=== PATIENT | female | born 1985 | race Two or more races ===

== ENCOUNTER 2019-03-05 14:34 | Emergency (ER) | payer OTHER ==
[~2019-03-05] VITALS: Ht 160 cm; Wt 68.9 kg
[2019-03-05] MEDS ORDERED: Ketorolac 30mg Inj IV ONE (14:45)
[2019-03-05] MEDS ORDERED: Benzonatate 100mg Perles ORAL ONE (14:45)
--- NOTE | 2019-03-05 14:46 | Emergency Room Report ---
History of Present Illness General Chief Complaint: Upper Respiratory Illness Source: Patient, EMS (Alex Coley) Present Illness HPI 33-year-old female patient presents the ER brought in by ambulance for cough and right-sided chest pain. Reports cough is been present for the past 3 days, states cough with mucus. Denies hemoptysis. Reports onset of right-sided chest pain is worse with cough since this morning. Denies injury or accident. Denies fever. Reports was seen at [facility] 3 days ago at onset of symptoms and told that she had strep throat but was discharged with an albuterol inhaler. Reports that she does not have sore throat throat symptoms at this time. Denies vomiting or diarrhea. Denies history of heart disease. Denies history of asthma. Reports shortness of breath with cough symptoms. Denies recent travel outside the country. Denies calf pain. Denies other aggravating or relieving factors. Denies dysuria. Denies drinking daily, drug use, marijuana use. Reports social drinking. Reports able to pass flatus. (Alex Coley) Allergies: Coded Allergies: No Known Allergies (Unverified , 03/05/19) Patient History Past Medical History: see triage record Last Menstrual Period: 01/30/19 Reviewed Nursing Documentation: PMH: Agreed; PSxH: Agreed (Alex Coley) Nursing Documentation-PMH Past Medical History: No Stated History (Alex Coley) Review of Systems All Other Systems: negative except mentioned in HPI (Alex Coley) Physical Exam Vital Signs Date Time Temp Pulse Resp B/P (MAP) Pulse Ox O2 Delivery O2 Flow Rate FiO2 03/05/19 14:32 98.1 96 18 118/80 100 Room Air Sp02 EP Interpretation: reviewed, normal General Appearance: well appearing, no apparent distress, alert, GCS 15, non- toxic Head: normocephalic, atraumatic Eyes: bilateral eye normal inspection, bilateral eye PERRL ENT: hearing grossly normal, normal pharynx, no angioedema, normal voice, TMs + canals normal, uvula midline, moist mucus membranes, other - no tonsillar exudates, no pharyngeal erythema Neck: full range of motion, no meningismus, no bony tend Respiratory: lungs clear, normal breath sounds, no rhonchi, no respiratory distress, no accessory muscle use, no wheezing, speaking full sentences, other - Right anterior wall chest tender to palpation, no flail chest, no bony deformity, no ecchymosis Cardiovascular #1: regular rate, rhythm, no edema Gastrointestinal: soft, no mass, non-distended, no guarding, no rebound, tenderness - Generalized and diffuse, other - Negative Jefferson Musculoskeletal: back normal, digits/nails normal, gait/station normal, normal range of motion, non-tender, no calf tenderness, Prabhu's Sign negative Neurologic: alert, oriented x3, responsive, motor strength/tone normal, sensory intact Psychiatric: mood/affect normal Skin: no rash (Alex Coley P.AAndria) Medical Decision Making PA Attestation Dr. Zaragoza is my supervising Physician whom patient management has been discussed with. (Alex Coley P.AAndria) Diagnostic Impression: Primary Impression: Urinary tract infection Qualified Codes: N39.0 - Urinary tract infection, site not specified Additional Impressions: Musculoskeletal chest pain Upper respiratory infection Qualified Codes: J06.9 - Acute upper respiratory infection, unspecified Bronchospasm ER Course Pt. presents to the ED c/o right-sided chest pain, cough. Ddx considered but are not limited to viral URI, influenza, costochondritis, WA , PE, UTI, pneumonia, bronchitis,sepsis, strep throat. On PE, chest is TTP; chest pain likely musculoskeletal in nature secondary to cough, does not require cardiac workup at this time. Patient instructed to take NSAIDs as needed for pain symptoms. Vital signs: are WNL, pt. is afebrile ER COURSE: Provide medication and IV fluids in the ER. On initial physical exam patient has generalized abdominal tenderness to palpation, abdomen is soft, no focal abdominal pain, patient states that the abdominal pain began in the ER, initially had no complaints of abdominal pain. Negative Rovsing, negative obturator, low suspicion for appendicitis however will continue to monitor. Does not require CT abdomen at this time. EKG unremarkable, no ST elevations or T wave inversions, low suspicion for WA or cardiac etiology of symptoms. Chest x-ray unremarkable, no signs of pneumonia Pain reproducible, chest TTP, CXR and EKG negative, low suspicion for cardiac etiology of symptoms, likely MSK in nature. Advised patient to followup with PCP and discuss referral to cardiology for stress testing and further evaluation. Influenza swab negative Urine negative UDS negative UA shows elevated WBCs and bacteria, likely urinary tract infection, will provide patient with Rocephin in the ER and antibiotics at discharge. CBC mildly elevated WBCs, likely due to pain and urinary tract infection CMP unremarkable, mild elevation in AST Lipase WNL Reports continued complaints of pain, provide with further pain medication in the ER. Patient resting comfortably in no acute distress, nontoxic appearing. ER precautions given. Patient reports pain symptoms improve ER. Follow-up with primary care provider. Patient seen and evaluated by Dr. Zaragoza in the ER. DISCHARGE: At this time pt is stable for d/c to home. Patient is resting comfortably, in no acute distress, nontoxic appearing, talking without difficulty. Patient to take medications as instructed Will provide with patient care instructions and any necessary prescriptions. Care plan and follow-up instructions provided. Patient instructed to follow-up with primary care provider in 3 - 5 days. Patient questions asked and answered. Patient reports understanding and agreement to treatment plan. ER precautions given. Patient instructed to return to ER immediately for any new or worsening of symptoms including but not limited to increasing SOB, persistent fever, chest pain, intractable vomiting. - Please note that this Emergency Department Report was dictated using [employer] welding machine operator technology software, occasionally this can lead to erroneous entry secondary to interpretation by the dictation equipment. Labs Test 03/05/19 14:56 03/05/19 15:00 White Blood Count 14.2 K/UL (4.8-10.8) Red Blood Count 3.83 M/UL (4.20-5.40) Hemoglobin 12.2 G/DL (12.0-16.0) Hematocrit 35.5 % (37.0-47.0) Mean Corpuscular Volume 93 FL (80-99) Mean Corpuscular Hemoglobin 32.0 PG (27.0-31.0) Mean Corpuscular Hemoglobin Concent 34.5 G/DL (32.0-36.0) Red Cell Distribution Width 12.2 % (11.6-14.8) Platelet Count 316 K/UL (150-450) Mean Platelet Volume 5.2 FL (6.5-10.1) Neutrophils (%) (Auto) 82.7 % (45.0-75.0) Lymphocytes (%) (Auto) 9.4 % (20.0-45.0) Monocytes (%) (Auto) 5.6 % (1.0-10.0) Eosinophils (%) (Auto) 1.5 % (0.0-3.0) Basophils (%) (Auto) 0.8 % (0.0-2.0) Sodium Level 138 MMOL/L (136-145) Potassium Level 3.7 MMOL/L (3.5-5.1) Chloride Level 100 MMOL/L (98-107) Carbon Dioxide Level 27 MMOL/L (21-32) Anion Gap 11 mmol/L (5-15) Blood Urea Nitrogen 8 mg/dL (7-18) Creatinine 0.8 MG/DL (0.55-1.30) Estimat Glomerular Filtration Rate > 60 mL/min (>60) Glucose Level 99 MG/DL (74-106) Calcium Level 8.9 MG/DL (8.5-10.1) Total Bilirubin 0.3 MG/DL (0.2-1.0) Aspartate Amino Transf (AST/SGOT) 39 U/L (15-37) Alanine Aminotransferase (ALT/SGPT) 45 U/L (12-78) Alkaline Phosphatase 93 U/L (46-116) Total Protein 7.9 G/DL (6.4-8.2) Albumin 3.6 G/DL (3.4-5.0) Globulin 4.3 g/dL Albumin/Globulin Ratio 0.8 (1.0-2.7) Lipase 82 U/L (73-393) Urine Color Pale yellow Urine Appearance Slightly cloudy Urine pH 6.5 (4.5-8.0) Urine Specific [place] 1.015 (1.005-1.035) Urine Protein Negative (NEGATIVE) Urine Glucose (UA) Negative (NEGATIVE) Urine Ketones Negative (NEGATIVE) Urine Blood 1+ (NEGATIVE) Urine Nitrite Negative (NEGATIVE) Urine Bilirubin Negative (NEGATIVE) Urine Urobilinogen Normal MG/DL (0.0-1.0) Urine Leukocyte Esterase 3+ (NEGATIVE) Urine RBC 2-4 /HPF (0 - 2) Urine WBC 15-20 /HPF (0 - 2) Urine Squamous Epithelial Cells Many /LPF (NONE/OCC) Urine Bacteria Many /HPF (NONE) Urine HCG, Qualitative Negative (NEGATIVE) Urine Opiates Screen Negative (NEGATIVE) Urine Barbiturates Screen Negative (NEGATIVE) Phencyclidine (PCP) Screen Negative (NEGATIVE) Urine Amphetamines Screen Negative (NEGATIVE) Urine Benzodiazepines Screen Negative (NEGATIVE) Urine Cocaine Screen Negative (NEGATIVE) Urine Marijuana (THC) Screen Negative (NEGATIVE) (Alex Coley P.A.) ER Course Please see above note. I evaluated the patient and examined her. Recent addition of inhaler 2 weeks ago, but significant cough with R upper chest pain. Abdominal pain. Improved with treatment. I agree with treatment plan. Patient stable for outpatient observation and treatment. (Dago Zaragoza MD) EKG Diagnostic Results Rate: normal Rhythm: NSR ST Segments: no acute changes ASA given to the pt in ED: No PA Scribe Text Rashel Coley PA-C (Alex Coley P.A.) Rhythm Strip Diag. Results EP Interpretation: yes Rate: 78 Rhythm: NSR, no PVC's, no ectopy PA Scribe Text Rashel Coley PA-C (Alex Coley P.A.) Chest X-Ray Diagnostic Results Chest X-Ray Diagnostic Results : Chest X-Ray Ordered: Yes # of Views/Limited/Complete: 1 View Indication: Chest Pain EP Interpretation: Yes PA Xray: Interpretation reviewed, by supervising MD, and agrees with findings. Interpretation: no consolidation, no effusion, no pneumothorax, no acute cardiopulmonary disease Impression: No acute disease PA Scribe Text Rashel Coley PA-C (Alex Coley P.A.) Chest X-Ray Diagnostic Results : Electronically Signed by: Bessy A documentation of Xray reviewed by me and is accurate, Dago Zaragoza MD (Dago Zaragoza MD) Last Vital Signs Date Time Temp Pulse Resp B/P (MAP) Pulse Ox O2 Delivery O2 Flow Rate FiO2 03/05/19 14:32 98.1 96 18 118/80 100 Room Air Status: improved (Alex Coley P.A.) Last Vital Signs Date Time Temp Pulse Resp B/P (MAP) Pulse Ox O2 Delivery O2 Flow Rate FiO2 03/05/19 19:08 98.1 90 17 123/78 100 Room Air Status: improved (Dago Zaragoza MD) Disposition: HOME, SELF-CARE Condition: Improved Scripts Ibuprofen* (MOTRIN*) 600 Mg Tablet 600 MG ORAL Q8H PRN for For Pain, #30 TAB 0 Refills Prov: Alex Coley.A. 03/05/19 Methocarbamol* (ROBAXIN*) 500 Mg Tablet 500 MG PO TID, #21 TAB 0 Refills Prov: Alex Coley 03/05/19 Ciprofloxacin Hcl* (CIPROFLOXACIN HCL*) 500 Mg Tablet 500 MG ORAL EVERY 12 HOURS for 7 Days, #14 TAB 0 Refills Prov: Alex Coley 03/05/19 Patient Instructions: Costochondritis, [id number], Nonspecific Chest Pain, Upper Respiratory Infection, Adult, Urinary Tract Infection, [id number] Additional Instructions: Followup with primary care provider and followup with and./or OBGYN. Drink plenty of fluids. Take Tylenol/Motrin for pain symptoms. Do not drink, drive, or operate heavy machinery while taking muscle relaxant. Take medications as directed. Do not exercise excessively while taking ciprofloxacin. Discuss referral to cardiology as needed for cardiac stress testing. Patient questions asked and answered. ER precautions given, patient instructed to return to ER immediately for any new or worsening of symptoms. Alex Coley Mar 05, 2019 14:46 Dago Zaragoza MD Mar 06, 2019 01:54
[2019-03-05 15:12] LABS: BASOPHILS % (AUTO) 0.8 % (0.0-2.0); EOSINOPHILS % (AUTO) 1.5 % (0.0-3.0); HEMATOCRIT 35.5 % (37.0-47.0); HEMOGLOBIN 12.2 G/DL (12.0-16.0); LYMPHOCYTES % (AUTO) 9.4 % (20.0-45.0); MEAN CORPUSCULAR VOLUME 93 FL (80-99); MONOCYTES % (AUTO) 5.6 % (1.0-10.0); NEUTROPHILS % (AUTO) 82.7 % (45.0-75.0); PLATELET COUNT 316 K/UL (150-450); RED BLOOD COUNT 3.83 M/UL (4.20-5.40); RED CELL DISTRIBUTION WIDTH 12.2 % (11.6-14.8); WHITE BLOOD COUNT 14.2 K/UL (4.8-10.8)
[2019-03-05 15:16] LABS: ANION GAP 11 mmol/L (5-15); BLOOD UREA NITROGEN 8 mg/dL (7-18); CALCIUM 8.9 MG/DL (8.5-10.1); CARBON DIOXIDE 27 MMOL/L (21-32); CHLORIDE 100 MMOL/L (98-107); CREATININE 0.8 MG/DL (0.55-1.30); POTASSIUM 3.7 MMOL/L (3.5-5.1); SODIUM 138 MMOL/L (136-145)
[2019-03-05 15:21] LABS: ALANINE AMINOTRANSFERASE 45 U/L (12-78); ALBUMIN 3.6 G/DL (3.4-5.0); ALBUMIN/GLOBULIN RATIO 0.8 (1.0-2.7); ALKALINE PHOSPHATASE 93 U/L (46-116); ASPARTATE AMINO TRANSFERASE 39 U/L (15-37); BILIRUBIN,TOTAL 0.3 MG/DL (0.2-1.0)
[2019-03-05 15:43] VITALS: BP 118/80
[2019-03-05] MEDS ORDERED: Dicyclomine HCl 10mg/5ml oral soln ORAL ONE (15:45)
[2019-03-05] MEDS ORDERED: Lidocaine 2% Visc 15ml soln ORAL ONE (15:45)
[2019-03-05] MEDS ORDERED: Mylanta II UD 30ml ORAL ONE (15:45)
[2019-03-05 15:46] LABS: APPEARANCE,URINE SLIGHTLY CLOUDY; BILIRUBIN, URINE NEGATIVE (NEGATIVE); COLOR,URINE PALE YELLOW; GLUCOSE, URINE (UA) NEGATIVE (NEGATIVE); KETONES,URINE NEGATIVE (NEGATIVE); LEUKOCYTE ESTERASE ,URINE 3+ (NEGATIVE); NITRITE,URINE NEGATIVE (NEGATIVE); PH,URINE 6.5 (4.5-8.0); PROTEIN,URINE NEGATIVE (NEGATIVE); UROBILINOGEN,URINE NORMAL MG/DL (0.0-1.0)
[2019-03-05] MEDS ORDERED: Lidocaine 1% MPF 10mg/ml 5ml INJ ONE (16:15)
[2019-03-05] MEDS ORDERED: cefTRIAXone 1 GM in NS 55 ML IVPB ONE (16:30)
[2019-03-05] MEDS ORDERED: Morphine Sulfate 4mg/ml Inj (IV USE ONLY) IVP ONE (17:30)
--- NOTE | 2019-03-05 17:45 | Diagnostic Imaging Report ---
EXAM: XR Chest, 1 View CLINICAL HISTORY: ABD PAIN TECHNIQUE: Frontal view of the chest. COMPARISON: No relevant prior studies available. FINDINGS: Lungs: Unremarkable. No consolidation. Pleural space: Unremarkable. No pneumothorax. Heart: Unremarkable. No cardiomegaly. Mediastinum: Unremarkable. Bones/joints: Unremarkable. IMPRESSION: No acute cardiopulmonary disease.
[2019-03-05] MEDS ORDERED: Morphine Sulfate 2mg/ml Inj(IV/IM USE ONLY) IVP ONE (18:30)
[2019-03-05] MEDS ORDERED: ROBAXIN500 MG PO (18:53)
[2019-03-05] MEDS ORDERED: CIPROFLOXACIN500 M2 ORAL (18:53)
[2019-03-05] MEDS ORDERED: IBUPROFEN600 MG ORAL (18:53)
[2019-03-05 18:57] VITALS: BP 123/78
[2019-03-05 19:08] VITALS: BP 123/78
--- NOTE | 2019-03-05 19:09 | NUR ---
ER DISCHARGE NOTE: Patient is cleared to be discharged per ERMD, pt is aox4, on room air, with stable vital signs. pt was given dc and prescription instructions, pt was able to verbalize understanding, pt id band and iv site removed without complications. pt is able to ambulate with steady gait. pt took all belongings.
== END 2019-03-05 19:09 | disposition home or self-care (01) ==
LOC: EDBD 14:34 → EMR 15:15
DX: N39.0 Urinary tract infection, site not specified (principal); R07.9 Chest pain, unspecified; J06.9 Acute upper respiratory infection, unspecified; J98.01 Acute bronchospasm
CPT/HCPCS: 36415; 71045; 80053; 80307; 81003; 81025; 83690; 85025; 86710; 87086; 93005; 96361; 96365; 96372; 96375; 96376; 99284; J0696; J1885; J2270; S0028